=== PATIENT | male | born 1960 | race Caucasian/White ===

== ENCOUNTER 2024-04-28 13:29 | Outpatient (AMB) | payer OTHER, SELFPAY ==
--- NOTE | 2024-04-28 13:30 | HO.NEPHOV ---
Vital Signs 04/28/24 13:31 Height 5 ft 6 in Weight 177 lb BMI 28.6 BP 142/90 H Blood Pressure Location Lt brachial Position Sitting Pulse 91 Pulse Source Pulse Oximeter Pulse Oximetry (%) 95 Oxygen Delivery Method Room Air Intake Visit Reasons: Continuing care from [facility] Clothing Trades Workers Required: No Accompanied by: Self / Same As Patient Allergies azithromycin Allergy (Verified 04/28/24 13:34) Stomach Upset HPI Comments Details: Cresencio was seen in the office in follow-up of his hypertension. He is very compliant with his medications. He denies taking excess sodium in the diet. He seldom takes any nonsteroidal anti-inflammatories. He does not have any pedal edema, shortness of breath or orthostatic symptoms. He does not monitor his blood pressure at home. Otherwise there were no new complaints at the time this office visit. [facility] Medical History (Updated 04/28/24 @ 13:57 by Donald Oshea MD) Hypertension Surgical History (Updated 04/28/24 @ 13:35 by Kristina Garza MA) S/P correction of deviated nasal septum H/O hernia repair History of tonsillectomy and adenoidectomy Family History (Updated 04/28/24 @ 13:35 by Kristina Garza MA) Sister Cancer Social History Alcohol intake: current Comment: Socially Patient Tobacco Use Status: Former Tobacco user Review of Systems Const All systems reviewed & are unremarkable except as noted in HPI and below Physical Exam Const General: comfortable and no acute distress Orientation/consciousness: patient oriented x3 HEENT Head: Yes normocephalic Mouth: Normal oral and palatal mucosa present Eyes EOM: EOMs intact bilaterally Neck Neck: Yes supple Resp Auscultation: clear to auscultation bilaterally Cardio Jugular venous distension: no JVD Rate: regular rate GI Palpation (GI): Soft to palpation Auscultation: normal bowel sounds General: Yes no CVA tenderness Back/Spine/Pelvis Back: no CVA tenderness Skin General skin exam: no rashes or lesions noted Neuro General: patient oriented x3 and moves all extremities Extrem General: Yes no pedal edema Results Reviewed Nephrology Results: No Data to Display Assessment & Plan Assessment & Plan (1) Hypertension: Code(s): I10 - Essential (primary) hypertension Category: Medical Qualifiers: Hypertension type: primary hypertension Qualified Code(s): I10 - Essential (primary) hypertension Plan Cresencio is known to have hypertension for some time. He is compliant with 100 mg of losartan a day. He is active. He does not monitor his blood pressure at home. He does not have any retinopathy, proteinuria, renal dysfunction, LVH or congestive heart failure. He was encouraged to monitor his blood pressure regularly. His blood pressure was 140/90 in the office today. He has gained some weight and was counseled. If his blood pressure remains not at goal I plan to add chlorthalidone 25 mg in addition to losartan 100 mg daily to keep his blood pressure at goal. I did not make any medication changes today. All his recent lab work were reviewed and were acceptable. Answered all questions. Coding Level of Care Code Est Pt Level 4 (36631) Diagnoses Primary hypertension I10 Hypertension type: primary hypertension
[2024-04-28 13:31] VITALS: BP 142/90; PULSE 91; O2SAT 95; BMI 28.6
== END 2024-04-28 13:53 | disposition home or self-care (01) ==
PROVIDERS: Visit Provider Internal Medicine Nephrology
DX: I10 Essential (primary) hypertension (principal)
CPT/HCPCS: 99214

== ENCOUNTER → 2024-04-28 13:29 | Outpatient (BNVA) | payer OTHER, SELFPAY | PROVIDERS: Visit Provider Internal Medicine Nephrology ==

== ENCOUNTER 2024-10-27 10:08 | Outpatient (AMB) | payer OTHER, SELFPAY ==
--- NOTE | 2024-10-27 10:14 | HO.NEPHOV_ITS ---
Vital Signs 10/27/24 10:15 Height 5 ft 6 in Weight 176 lb BMI 28.4 BP 160/90 H Blood Pressure Location Lt brachial Position Sitting Pulse 81 Pulse Source Pulse Oximeter Pulse Oximetry (%) 96 Oxygen Delivery Method Room Air Intake Visit Reasons: 6 mon follow up-Conf Landfill Grader Required: No Accompanied by: Self / Same As Patient Allergies azithromycin Allergy (Verified 10/27/24 10:15) Stomach Upset HPI Comments Details: Cresencio was seen in the office in follow-up of his hypertension. He is very compliant with his medications. He denies taking excess sodium in the diet. He seldom takes any nonsteroidal anti-inflammatories. He does not have any pedal edema, shortness of breath or orthostatic symptoms. He does not monitor his blood pressure at home regularly. Otherwise there were no new complaints at the time this office visit. [facility] Medical History (Updated 04/28/24 @ 13:57 by Donald Oshea MD) Hypertension Surgical History S/P correction of deviated nasal septum H/O hernia repair History of tonsillectomy and adenoidectomy Family History Sister Cancer Social History Alcohol intake: current Comment: Socially Patient Tobacco Use Status: Former Tobacco user Review of Systems Const All systems reviewed & are unremarkable except as noted in HPI and below Physical Exam Vital Signs: Last Vital Signs Pulse 81 10/27/24 10:15 BP 160/90 H 10/27/24 10:15 Pulse Ox 96 10/27/24 10:15 Oxygen Delivery Method Room Air 10/27/24 10:15 BMI result Body Mass Index 28.4 Const General: comfortable and no acute distress Orientation/consciousness: patient oriented x3 HEENT Head: Yes normocephalic Mouth: Normal oral and palatal mucosa present Eyes EOM: EOMs intact bilaterally Neck Neck: Yes supple Resp Auscultation: clear to auscultation bilaterally Cardio Jugular venous distension: no JVD Rate: regular rate GI Palpation (GI): Soft to palpation Auscultation: normal bowel sounds Skin General skin exam: no rashes or lesions noted Neuro General: patient oriented x3 and moves all extremities Extrem General: Yes no pedal edema Results Reviewed Nephrology Results: No Data to Display Assessment & Plan Assessment & Plan (1) Hypertension: Code(s): I10 - Essential (primary) hypertension Category: Medical Qualifiers: Hypertension type: primary hypertension Qualified Code(s): I10 - Essential (primary) hypertension Plan Cresencio is known to have hypertension for some time. He is compliant with 100 mg of losartan a day. He is active. He does not monitor his blood pressure at home. He does not have any retinopathy, proteinuria, renal dysfunction, LVH or congestive heart failure. He was encouraged to monitor his blood pressure regularly. His blood pressure was 160/90 in the office today. I added chlorthalidone 25 mg in addition to losartan 100 mg daily to keep his blood pressure at goal. I did not make any other medication changes today. All his recent lab work were reviewed and were acceptable. Answered all questions Orders: Orders Blood Urea Nitrogen 3 Months I10 - Essential (primary) hypertension Calcium 3 Months I10 - Essential (primary) hypertension Electrolytes 3 Months I10 - Essential (primary) hypertension Creatinine 3 Months I10 - Essential (primary) hypertension Medications: New chlorthalidone 25 mg PO DAILY 30 tabs 0RF chlorthalidone 25 mg PO DAILY 90 tabs 3RF Coding Level of Care Code Est Pt Level 4 (03027) Diagnoses Primary hypertension I10 Hypertension type: primary hypertension
[2024-10-27 10:15] VITALS: BP 160/90; PULSE 81; O2SAT 96; BMI 28.4
--- OUTSIDE RECORDS SUMMARY | 2024-10-27 11:53 | XMS_ITS | Clinical Summary ---
Author Organization [facility] Address [address] [facility] [address] [place] [address] Phone Care Team Providers Care Spanish Lecturer Name Role Phone Bhanu Garcia MD Primary Care Provider [phone] Allergies Active Allergy Reactions Criticality Noted Date Comments Erythromycin 12/19/2020 Medications losartan (COZAAR) 100 MG tablet Take 1 tablet (100 mg total) by mouth 1 (one) time each day 90 tablet 3 05/07/2023 Active Active Problems Problem Noted Date Diagnosed Date Essential hypertension 09/30/2020 Family History Medical History Relation Comments Hypertension Father Relation Status Comments Father Social History Tobacco Use Types Packs/Day Years Used Date Smoking Tobacco: Former Cigars Smokeless Tobacco: Former Tobacco Cessation:Counseling Given: Not Answered Alcohol Use Standard Drinks/Week Comments Yes 0 (1 standard drink = 0.6 oz pur e alcohol) Sex and Gender Information Value Date Recorded Sex Assigned at Not on file Legal Sex Male 5:13 PM EST Gender Identity Not on file Sexual Orientation Not on file Last Filed Vital Signs Vital Sign Reading Time Taken Comments Blood Pressure 130/68 05/07/2023 1:05 PM EDT Pulse 104 05/07/2023 1:05 PM EDT Temperature - - Respiratory Rate - - Oxygen Saturation 95% 05/07/2023 1:05 PM EDT Inhaled Oxygen Concentration - - Weight 73.8 kg (162 lb 9.6 oz) 05/07/2023 1:05 P M EDT Height - - Body Mass Index - - Plan of Treatment Health Maintenance Due Date Last Done Comments Pneumococcal Vaccine: Pediat rics (0 to 5 Years) and At-Risk Patients (6 to 64 Years) (1 of 2 - PCV) 1968 Colorectal Cancer Screening: Annual FOBT 2011 Colorectal Cancer Screening: Colonoscopy 2011 Colorectal Cancer Screening: Sigmoidoscopy 2011 Influenza Vaccine (#1) 2024 Hepatitis B Vaccine Aged Out No longe r eligible based on patient's age to complete this topic Insurance AETNA AETNA Care Teams Spanish Lecturer Relationship Specialty Start Date End Date Bhanu Garcia MD [address] [place] [address] PCP - General Internal Medicine 12/19/20
== END 2024-10-27 10:38 | disposition home or self-care (01) ==
PROVIDERS: PCP Internal Medicine; Visit Provider Internal Medicine Nephrology
DX: I10 Essential (primary) hypertension (principal)
CPT/HCPCS: 99214

== ENCOUNTER → 2024-10-27 10:08 | Outpatient (BNVA) | payer OTHER, SELFPAY | PROVIDERS: Visit Provider Internal Medicine Nephrology ==

== ENCOUNTER 2025-01-28 07:35 | Outpatient (REF) | payer OTHER, SELFPAY ==
--- OUTSIDE RECORDS SUMMARY | 2025-01-28 07:38 | XMS_ITS | Clinical Summary ---
Author Organization [facility] [address] [facility] Address [address] [place] [address] Phone Care Team Providers Care Boat Outfitting Supervisor Name Role Phone Bhanu Garcia MD Primary Care Provider [phone] Allergies Active Allergy Reactions Criticality Noted Date Comments Erythromycin 11/04/2024 Medications chlorthalidone (HYGROTON) 25 mg tablet Take 1 tablet (25 mg total) by mouth 1 (one) time each day. 10/27/2024 Active losartan (COZAAR) 100 mg tablet Take 1 tablet (100 mg total) by mouth 1 (one) time each day. 10/05/2024 Active sildenafiL (VIAGRA) 100 mg tablet 1 TABLET NEEDED ORALLY ONCE A DAILY FOR 30 NEEDED 08/24/2024 Active Encounters Date Type Department Care Team Description 11/04/2024 Telephone Gastroenterology - [address] [place] [id number] Richard Monzon MD Special Procedure from Last 3 Months Social History Tobacco Use Types Packs/Day Years Used Date Smoking Tobacco: Never Assessed Sex and Gender Information Value Date Recorded Sex Assigned at Not on file Legal Sex Male 2:30 AM EST Gender Identity Not on file Sexual Orientation Not on file Plan of Treatment Health Maintenance Due Date Last Done Comments DTaP,Tdap,and Td Vaccines (1 - Tdap) 1981 Pneumococcal Vaccine: 50+ Ye ars (1 of 1 - PCV) 2012 Zoster Vaccines (1 of 2) 2012 COVID-19 Vaccine (2023-2 5 season) 2024 Cholesterol Screening (Lipid Panel) 11/04/2024 Colorectal Cancer Screening: Colonoscopy 11/04/2024 Depression Screening 11/04/2024 HIV Screening 11/04/2024 Hepatitis C Screening 11/04/2024 Social Influencers of Health Screening 11/04/2024 Influenza Vaccine (Season Ended) 2025 RSV Immunization Adult Patie nts (1 - 1-dose 75+ series) 2037 HIB Vaccines Aged Out No longer eligi ble based on patient's age to complete this topic HPV Vaccines Aged Out No longer eligi ble based on patient's age to complete this topic Hepatitis A Vaccines Aged Out No long er eligible based on patient's age to complete this topic Hepatitis B Vaccines Aged Out No long er eligible based on patient's age to complete this topic IPV Vaccines Aged Out No longer eligi ble based on patient's age to complete this topic MMR Vaccines Aged Out No longer eligi ble based on patient's age to complete this topic Meningococcal ACWY Vaccine Aged Out N o longer eligible based on patient's age to complete this topic Meningococcal B Vaccine Aged Out No l onger eligible based on patient's age to complete this topic Pneumococcal Vaccine: Pediat rics (0 to 5 Years) and At-Risk Patients (6 to 64 Years) Aged Out No longer eligible b ased on patient's age to complete this topic RSV Immunization Patients Un sujit 20 months Aged Out No longer eligible b ased on patient's age to complete this topic Varicella Vaccines Aged Out No longer eligible based on patient's age to complete this topic Insurance [facility] Care Teams Boat Outfitting Supervisor Relationship Specialty Start Date End Date Bhanu Garcia MD [address] [place], [place] [address] PCP - General Internal Medicine 11/04/24
[2025-01-28 08:41] LABS: Anion Gap 14 (12-20); Blood Urea Nitrogen 13 mg/dL (9-16); Calcium 9.4 mg/dL (8.4-10.2); Carbon Dioxide 26 mmol/L (22-29); Chloride 102 mmol/L (96-108); Estimated Glomerular Filt Rate > 60; Sodium 138 mmol/L (135-145)
== END 2025-01-28 07:36 | disposition home or self-care (01) ==
LOC: HO.LAB 07:35
PROVIDERS: PCP Internal Medicine; Visit Provider Internal Medicine Nephrology
DX: I10 Essential (primary) hypertension (principal)
CPT/HCPCS: 36415; 80051; 82310; 82565; 84520

== ENCOUNTER 2025-02-02 15:42 | Outpatient (AMB) | payer OTHER, SELFPAY ==
--- NOTE | 2025-02-02 15:43 | HO.NEPHOV_ITS ---
Vital Signs 02/02/25 15:44 Height 5 ft 6 in Weight 176 lb BMI 28.4 BP 120/72 Blood Pressure Location Lt brachial Position Sitting Pulse 94 Pulse Source Pulse Oximeter Pulse Oximetry (%) 98 Oxygen Delivery Method Room Air Intake Visit Reasons: 3 mnts-Conf Automatic Grinding Machine Operator Required: No Accompanied by: Self / Same As Patient Allergies azithromycin Allergy (Verified 02/02/25 15:45) Stomach Upset HPI Comments Details: Cresencio was seen in the office in follow-up of his hypertension. He is very compliant with his medications. He denies taking excess sodium in the diet. He seldom takes any nonsteroidal anti-inflammatories. He does not have any pedal edema, shortness of breath or orthostatic symptoms. He does not monitor his blood pressure at home regularly. Otherwise there were no new complaints at the time this office visit. [facility] Medical History (Updated 04/28/24 @ 13:57 by Donald Oshea MD) Hypertension Surgical History S/P correction of deviated nasal septum H/O hernia repair History of tonsillectomy and adenoidectomy Family History Sister Cancer Social History Alcohol intake: current Comment: Socially Patient Tobacco Use Status: Former Tobacco user Review of Systems Const All systems reviewed & are unremarkable except as noted in HPI and below Physical Exam Vital Signs: Last Vital Signs Pulse 94 02/02/25 15:44 BP 120/72 02/02/25 15:44 Pulse Ox 98 02/02/25 15:44 Oxygen Delivery Method Room Air 02/02/25 15:44 BMI result Body Mass Index 28.4 Const General: comfortable and no acute distress Orientation/consciousness: patient oriented x3 HEENT Head: Yes normocephalic Mouth: Normal oral and palatal mucosa present Eyes EOM: EOMs intact bilaterally Neck Neck: Yes supple Resp Auscultation: clear to auscultation bilaterally Cardio Jugular venous distension: no JVD Rate: regular rate GI Palpation (GI): Soft to palpation Auscultation: normal bowel sounds General: Yes no CVA tenderness Back/Spine/Pelvis Back: no CVA tenderness Skin General skin exam: no rashes or lesions noted Neuro General: patient oriented x3 and moves all extremities Extrem General: Yes no pedal edema Results Reviewed Nephrology Results: Sodium 138 mmol/L (135-145) 01/28/25 Potassium 4.0 mmol/L (3.3-5.1) 01/28/25 Chloride 102 mmol/L (96-108) 01/28/25 Carbon Dioxide 26 mmol/L (22-29) 01/28/25 BUN 13 mg/dL (9-16) 01/28/25 Creatinine 0.87 mg/dL (0.5-1.4) 01/28/25 Calcium 9.4 mg/dL (8.4-10.2) 01/28/25 Assessment & Plan Assessment & Plan (1) Hypertension: Code(s): I10 - Essential (primary) hypertension Category: Medical Qualifiers: Hypertension type: primary hypertension Qualified Code(s): I10 - Essential (primary) hypertension Plan Cresencio is known to have hypertension for some time. He is compliant with 100 mg of losartan a day. He is active. He does not monitor his blood pressure at home. He does not have any retinopathy, proteinuria, renal dysfunction, LVH or congestive heart failure. He was encouraged to monitor his blood pressure regularly. he should continue chlorthalidone 25 mg in addition to losartan 100 mg daily to keep his blood pressure at goal. I did not make any other medication changes today. All his recent lab work were reviewed and were acceptable. Answered all questions Orders: Orders Blood Urea Nitrogen 6 Months I10 - Essential (primary) hypertension Creatinine 6 Months I10 - Essential (primary) hypertension Electrolytes 6 Months I10 - Essential (primary) hypertension Coding Level of Care Code Est Pt Level 4 (19326) Diagnoses Primary hypertension I10 Hypertension type: primary hypertension
[2025-02-02 15:44] VITALS: BP 120/72; PULSE 94; O2SAT 98; BMI 28.4
--- OUTSIDE RECORDS SUMMARY | 2025-02-02 18:10 | XMS_ITS | Clinical Summary ---
Author Organization [facility] 299 [facility] Address [address] [place] [address] Phone Care Team Providers Care Director Community Health Nursing Name Role Phone Bhanu Garcia MD Primary Care Provider [phone] Allergies Active Allergy Reactions Criticality Noted Date [...] Care Team Description 11/04/2024 Telephone Gastroenterology - [address] [place] [phone] Richard Monzon MD Special Procedure from [...] patient's age to complete this topic Insurance [facility] Care Teams Director Community Health Nursing Relationship Specialty Start Date End Date Bhanu Garcia MD [address] [place], [place] [phone] PCP - General Internal Medicine 11/04/24
== END 2025-02-02 16:12 | disposition home or self-care (01) ==
LOC: HO.HKAS 15:42
PROVIDERS: PCP Internal Medicine; Visit Provider Internal Medicine Nephrology
DX: I10 Essential (primary) hypertension (principal)
CPT/HCPCS: 99214

== ENCOUNTER → 2025-02-02 15:42 | Outpatient (BNVA) | payer OTHER, SELFPAY | PROVIDERS: PCP Internal Medicine; Visit Provider Internal Medicine Nephrology ==

== ENCOUNTER 2025-06-30 07:01 | Outpatient (REF) | payer OTHER, SELFPAY ==
--- OUTSIDE RECORDS SUMMARY | 2025-06-30 07:04 | XMS_ITS | Clinical Summary ---
Author Organization [facility] 299 [facility] [address] Address [address] [place] [address] Phone Care Team Providers Care Executive Chairman Name Role Phone Bhanu Garcia MD Primary Care Provider [phone] Allergies Active Allergy Reactions Criticality Noted Date [...] Encounters Date Type Department Care Team Description 06/14/2025 Telephone Pulmonology [facility] [address] [facility] [address] [place] [address] Heather Tejeda MD from Last 3 Months Social History Tobacco Use Types Packs/Day Years Used Date Smoking Tobacco: Never Assessed Sex and Gender Information Value Date Recorded Sex Assigned at Not on file Legal Sex Male 2:30 AM EST Gender Identity Not on file Sexual Orientation Not on file Plan of Treatment Health Maintenance Due Date Last Done Comments Colorectal Cancer Screening: Colonoscopy 1962 DTaP,Tdap,and Td Vaccines (1 - Tdap) 1981 Pneumococcal Vaccine: 50+ Ye ars (1 of 1 - PCV) 2012 Zoster Vaccines (1 of 2) 2012 Depression Screening 08/19/2024 Cholesterol Screening (Lipid Panel) 11/04/2024 HIV Screening 11/04/2024 Hepatitis C Screening 11/04/2024 Social Influencers of Health Screening 11/04/2024 COVID-19 Vaccine (1 - 2024-2 6 season) 2025 Influenza Vaccine (#1) 2025 RSV Immunization Adult Patie nts (1 [...] patient's age to complete this topic Insurance [employer] Care Teams Executive Chairman Relationship Specialty Start Date End Date Bhanu Garcia MD [address] [place] [address] PCP - General Internal Medicine 11/04/24
[2025-06-30 08:29] LABS: Anion Gap 11 (12-20); Blood Urea Nitrogen 17 mg/dL (9-16); Calcium 9.5 mg/dL (8.4-10.2); Carbon Dioxide 28 mmol/L (22-29); Chloride 105 mmol/L (96-108); Cholesterol 249 mg/dL (<200); Estimated Glomerular Filt Rate > 60; HDL Cholesterol 64 mg/dL (>40); Potassium 4.2 mmol/L (3.3-5.1); Sodium 140 mmol/L (135-145); Triglycerides 202 mg/dL (<150)
== END 2025-06-30 07:02 | disposition home or self-care (01) ==
LOC: HO.LAB 07:01
PROVIDERS: PCP Internal Medicine; Visit Provider Internal Medicine
DX: I10 Essential (primary) hypertension (principal); E78.9 Disorder of lipoprotein metabolism, unspecified; J98.4 Other disorders of lung; R00.2 Palpitations; R35.1 Nocturia; Z12.11 Encounter for screening for malignant neoplasm of colon; Z13.1 Encounter for screening for diabetes mellitus
CPT/HCPCS: 36415; 80048; 80061; 83036

== ENCOUNTER 2025-08-04 09:19 | Outpatient (AMB) | payer OTHER, SELFPAY ==
--- NOTE | 2025-08-04 09:29 | HO.NEPHOV_ITS ---
Vital Signs 08/04/25 09:30 Height 5 ft 6 in Weight 178 lb BMI 28.7 BP 132/70 Blood Pressure Location Lt brachial Position Sitting Pulse 94 Pulse Source Pulse Oximeter Pulse Oximetry (%) 97 Oxygen Delivery Method Room Air Intake Visit Reasons: 6m follow up-Conf Staff Physical Therapist Required: No Accompanied by: Self / Same As Patient Allergies azithromycin Allergy (Verified 08/04/25 09:30) Stomach Upset HPI Comments Details: Cresencio was seen in the office in follow-up of his hypertension. He is very compliant with his medications. He denies taking excess sodium in the diet. He seldom takes any nonsteroidal anti-inflammatories. He does not have any pedal edema, shortness of breath or orthostatic symptoms. He does not monitor his blood pressure at home regularly. Otherwise there were no new complaints at the time this office visit. [facility] Medical History (Updated 04/28/24 @ 13:57 by Donald Oshea MD) Hypertension Surgical History S/P correction of deviated nasal septum H/O hernia repair History of tonsillectomy and adenoidectomy Family History Sister Cancer Social History Alcohol intake: current Comment: Socially Patient Tobacco Use Status: Former Tobacco user Review of Systems Const All systems reviewed & are unremarkable except as noted in HPI and below Physical Exam Vital Signs: Last Vital Signs Pulse 94 08/04/25 09:30 BP 132/70 08/04/25 09:30 Pulse Ox 97 08/04/25 09:30 Oxygen Delivery Method Room Air 08/04/25 09:30 BMI result Body Mass Index 28.7 Const General: comfortable and no acute distress Orientation/consciousness: patient oriented x3 HEENT Head: Yes normocephalic Mouth: Normal oral and palatal mucosa present Eyes EOM: EOMs intact bilaterally Neck Neck: Yes supple Resp Auscultation: clear to auscultation bilaterally Cardio Jugular venous distension: no JVD Rate: regular rate GI Palpation (GI): Soft to palpation Auscultation: normal bowel sounds General: Yes no CVA tenderness Back/Spine/Pelvis Back: no CVA tenderness Skin General skin exam: no rashes or lesions noted Neuro General: patient oriented x3 and moves all extremities Extrem General: Yes no pedal edema Results Reviewed Nephrology Results: Sodium, (135-145) 140 mmol/L 06/30/25 Potassium, (3.3-5.1) 4.2 mmol/L 06/30/25 Chloride, (96-108) 105 mmol/L 06/30/25 Carbon Dioxide, (22-29) 28 mmol/L 06/30/25 BUN, (9-16) 17 mg/dL H 06/30/25 Creatinine, (0.5-1.4) 1.06 mg/dL 06/30/25 Calcium, (8.4-10.2) 9.5 mg/dL 06/30/25 Assessment & Plan Assessment & Plan (1) Hypertension: Code(s): I10 - Essential (primary) hypertension Category: Medical Qualifiers: Hypertension type: primary hypertension Qualified Code(s): I10 - Essential (primary) hypertension Plan Cresencio is known to have hypertension for some time. He is compliant with 100 mg of losartan a day. He is active. He does not monitor his blood pressure at home. He does not have any retinopathy, proteinuria, renal dysfunction, LVH or congestive heart failure. He was encouraged to monitor his blood pressure regularly. He should continue chlorthalidone 25 mg in addition to losartan 100 mg daily to keep his blood pressure at goal. Likely will need statins. I did not make any other medication changes today. All his recent lab work were reviewed and were acceptable. Answered all questions Orders: Orders Blood Urea Nitrogen 6 Months I10 - Essential (primary) hypertension Creatinine 6 Months I10 - Essential (primary) hypertension Calcium 6 Months I10 - Essential (primary) hypertension UA and rflx microscopic 6 Months I10 - Essential (primary) hypertension Protein Creatinine Ratio, Ur 6 Months I10 - Essential (primary) hypertension Electrolytes 6 Months I10 - Essential (primary) hypertension Coding Level of Care Code Est Pt Level 4 (69177) Diagnoses Primary hypertension I10 Hypertension type: primary hypertension
[2025-08-04 09:30] VITALS: BP 132/70; PULSE 94; O2SAT 97; BMI 28.7
--- OUTSIDE RECORDS SUMMARY | 2025-08-04 10:34 | XMS_ITS | Clinical Summary ---
Author Organization [facility] [address] [facility] [address] Address [address] [place] [address] Phone Care Team Providers Care Weaver Needle Loom Name Role Phone Bhanu Garcia MD Primary Care Provider Allergies Active Allergy Reactions Criticality Noted Date [...] Department Care Team Description 06/14/2025 Telephone Pulmonology [facility] [address] [facility] [address] [place] [address] Heather Tejeda MD from Last [...] complete this topic Insurance [employer] Care Teams Weaver Needle Loom Relationship Specialty Start Date End Date Bhanu Garcia MD [address] [place] [address] PCP - General Internal Medicine 11/04/24
== END 2025-08-04 09:51 | disposition home or self-care (01) ==
LOC: HO.HKA 09:19
PROVIDERS: PCP Internal Medicine; Visit Provider Internal Medicine Nephrology
DX: I10 Essential (primary) hypertension (principal)
CPT/HCPCS: 99214